=== PATIENT | male | born 1960 | race Caucasian/White ===

== ENCOUNTER → 2017-07-22 | Outpatient (CLI) | payer MEDICAID ==
[~2017-07-22] MED LIST: COUMADIN 10MG T10 MG PO; DICLOFENAC SODI75 M2 PO; FLEXERIL10 MG PO; GABAPENTIN100 M1 PO; GABAPENTIN300 M1 PO; HYDROCODONE BIT1 T45 PO; LOPRESSOR 25MG.25 MG PO; NOMEDS XX; NORCO 325 MG-51 TAB PO; XARELTO15 MG PO; XARELTO20 MG PO
--- NOTE | 2017-07-22 16:12 | CARDIOVASCULAR REPORT ---
"Venous Exam Indications: 729.5 Pain in limb. IMPRESSIONS No evidence of deep or superficial vein thrombosis involving the left lower extremity History: Left lower extremity pain. Swelling of the left lower extremity. PMH: Deep vein thrombosis. Patient had a DVT in 2014. Patient stopped taking warfarin in April 2016. Risk factors: Current tobacco use. Left lower extremity venous duplex evaluation. Doppler flow study including spectral analysis, color and warner scale imaging. Location: Vascular laboratory. Patient status: Outpatient. CRITICAL FINDINGS - Reported to: Lucrecia [facility] primary care - Read back and verified. - 07/22/17 - 16:15 - LLE negative for DVT or SVT Tables: Venous flow and imaging: + +-------+ + |Location |Overall|Flow properties | + +-------+ + |Left common femoral |Patent |Normal phasicity; spontaneous; | | | |normal augmentation; compressible | + +-------+ + |Left saphenofemoral junction|Patent |Compressible | + +-------+ + |Left profunda femoral |Patent |Compressible | + +-------+ + |Left femoral |Patent |Normal phasicity; spontaneous; | | | |normal augmentation; compressible | + +-------+ + |Left greater saphenous |Patent |Normal phasicity; spontaneous; | | | |normal augmentation; compressible | + +-------+ + |Left popliteal |Patent |Normal phasicity; spontaneous; | | | |normal augmentation; compressible | + +-------+ + |Left posterior tibial |Patent |Compressible | + +-------+ + |Left peroneal |Patent |Compressible | + +-------+ + |Left gastrocnemius |Patent |Compressible | + +-------+ + |Left soleal |Patent |Compressible | + +-------+ + (Report amended ) Electronically signed by: Michael Rivera [id number]"
--- NOTE | 2017-07-22 16:12 | CARDIOVASCULAR REPORT ---
"Venous Exam Indications: 729.5 Pain in limb. IMPRESSIONS No evidence of deep or superficial vein thrombosis involving the left lower extremity History: Left lower extremity pain. Swelling of the left lower extremity. PMH: Deep vein thrombosis. Patient had a DVT in 2014. Patient stopped taking warfarin in April 2016. Risk factors: Current tobacco use. Left lower extremity venous duplex evaluation. Doppler flow study including spectral analysis, color and warner scale imaging. Location: Vascular laboratory. Patient status: Outpatient. CRITICAL FINDINGS - Reported to: Lucrecia [facility] primary care - Read back and verified. - 07/22/17 - 16:15 - LLE negative for DVT or SVT Tables: Venous flow and imaging: + +-------+ + |Location |Overall|Flow properties | + +-------+ + |Left common femoral |Patent |Normal phasicity; spontaneous; | | | |normal augmentation; compressible | + +-------+ + |Left saphenofemoral junction|Patent |Compressible | + +-------+ + |Left profunda femoral |Patent |Compressible | + +-------+ + |Left femoral |Patent |Normal phasicity; spontaneous; | | | |normal augmentation; compressible | + +-------+ + |Left greater saphenous |Patent |Normal phasicity; spontaneous; | | | |normal augmentation; compressible | + +-------+ + |Left popliteal |Patent |Normal phasicity; spontaneous; | | | |normal augmentation; compressible | + +-------+ + |Left posterior tibial |Patent |Compressible | + +-------+ + |Left peroneal |Patent |Compressible | + +-------+ + |Left gastrocnemius |Patent |Compressible | + +-------+ + |Left soleal |Patent |Compressible | + +-------+ + (Report amended ) Electronically signed by: Michael Rivera [id number]"
== END ==
LOC: RT 15:49
DX: M79.662 Pain in left lower leg (principal)